=== PATIENT | female | born 1990 | race African-American/Black ===

== ENCOUNTER 2018-09-25 09:53 | Inpatient (IN) | payer BC ==
[2018-09-25] VITALS (7 sets, daily range): BP systolic 89–107; BP diastolic 45–91; Ht 170.2 cm; Wt 104.5 kg
[~2018-09-25] VITALS: Ht 170.2 cm; Wt 104.5 kg
--- NOTE | ~2018-09-25 | EC ---
PATIENT:CORA JOHN DATE OF SERVICE: 09/25/18 SEX: F MEDICAL RECORD: [id number] DATE OF : [birth year] LOCATION:[facility] AGE OF PATIENT: 28 ADMISSION DATE: 09/25/18 REFERRING PHYSICIAN: INTERPRETING PHYSICIAN: TYREE RAI MD ECHOCARDIOGRAM REPORT ECHO CHARGES 4 ECHO COMPLETE Date: 09/26/18 CLINICAL DIAGNOSIS: LV FUNCTION, AB PAIN, HX OF PERICARDIAL EFF WITH WINDOW. ECHOCARDIOGRAPHIC MEASUREMENTS (adult normal given) AC root (d.<3.7cm) 3.4 cm LV Septum d (<1.2 cm> 1.5 cm Valve Excursion 1.2 cm LV Septum (systole) 1.7 cm Left Atria (s.<4.0cm> 3.4 cm LVPW d(<1.2cm) 1.8 cm RV (d.<2.3cm) 3.5 cm LVPW (sytole) 2.0 cm LV diastole(<5.6CM) 3.7 cm MV E-F(>70mm/sec) cm LV systole 2.3 cm LVOT Diameter 1.5 cm MV exc.(>10mm) 1.4 cm Est.ejection fraction (50-75%) % DOPPLER: LVIT cm/sec A cm/sec E 70.0 cm/sec LA 86.0 cm/sec RVSP 178 mmHg LVOT cm/sec AOP1/2T 28 m/s Asc. Ao 117 cm/sec RVOT 188 cm/sec RA 101 cm/sec PA cm/sec AV Gradient Peak 14.13mmHg AV Mean 7.11 mmHg AV Area 1.3 cm MV Gradient Peak 6.36 mmHg MV Mean 3.62 mmHg MV Area cm COMMENTS: Manager Plan: Russell SANTIAGO Customer Service Technician: 1 Dr. Rai TAPE# PACS Pericardial Effusion N DATE OF SERVICE: 09/26/2018 FINDINGS: 1. Left ventricular chamber size is within normal limits. Left ventricular systolic function is normal. Overall ejection fraction is estimated at 65%. 2. Left atrium, right atrium, and right ventricle chamber sizes are within normal limit. 3. Valvular structures have normal structure and motion. 4. Doppler interrogation reveals only mild tricuspid regurgitation. No other valvular insufficiency or stenosis. Pulmonary systolic pressure is normal, ECHOCARDIOGRAM REPORT [id number] CORA JOHN estimated at 28 mmHg. 5. No evidence of pericardial effusion or left ventricular thrombus. TRANSINT:[id number] Voice Confirmation ID: [id number] DOCUMENT ID: [id number] TYREE RAI MD CC: [id number] DICTATION DATE: 09/26/18 1338 CORPORATE MEETING PLANNER: 09/26/18 1433 ADM IN [facility] [address] [place] [address]
--- NOTE | 2018-09-25 13:00 | NUR ---
pt recieved via stretcher and ems. vss. refer to flow sheet. family at bedside. given udpate. pt assitsed to bedside commode large bm noted. denies needs. dr lopez paged given update of pt arrival. will continue to monitor
--- NOTE | 2018-09-25 13:04 | NUR ---
DR. PETERS NOTIFIED OF PT ARRIVAL TO UNIT, NEW ORDERS RECIEVED,
[2018-09-25] MEDS ORDERED: FOLBIC RF TABL1 EACH PO (13:19)
[2018-09-25] MEDS ORDERED: FUROSEMIDE20 MG PO (13:20)
--- NOTE | 2018-09-25 15:20 | NUR ---
DR PETERS AT BEDSIDE. NEW ORDERS RECIEVED.
[2018-09-25 17:16] LABS: ANION GAP 17.4 mmol/L (8-16); BILIRUBIN - TOTAL 0.32 mg/dL (0.2-1.3); CARBON DIOXIDE 17.9 mmol/L (21.0-32.0); CREATININE - SERUM 1.7 mg/dL (0.6-1.3); POTASSIUM - SERUM 4.3 mmol/L (3.5-5.1); PROTEIN - SERUM 5.1 g/dL (6.4-8.2)
[2018-09-25 17:18] LABS: CALCIUM 6.7 mg/dL (8.5-10.1)
[2018-09-25 17:31] LABS: T4 THYROXIN - FREE 0.76 ng/dL (0.76-1.46); THYROID STIMULATING HORMONE 1.22 uIU/mL (0.36-3.74)
[2018-09-25 17:34] LABS: HEMATOCRIT 49.3 % (36.0-48.0); MCH 29.7 pg (26.0-34.0); MCHC 32.5 g/dL (31.0-37.0); MCV 91.5 fL (80.0-100.0); MEAN PLATELET VOLUME 11.6 fL (7.4-10.4); PLATELET COUNT 359 10x3/uL (130-400); RBC 5.39 10x6/uL (4.00-5.40); RDW 14.3 % (11.5-14.5); WBC 31.8 10x3/uL (4.8-10.8)
--- NOTE | 2018-09-25 17:54 | NUR ---
REPORT CALLED TO [facility] [id number]. TRANSFERED VIA WHEELCHAIR
--- NOTE | 2018-09-25 18:24 | NUR ---
PT AAOX4 ICU TRANSFER AT THIS TIME, RESP EVEN AND NONLABORED, CAME WITH BALDEV ER NURSE TAKING IT OUT AT THIS TIME, NO SIGNS OF DISTRESS NOTED, ORIENTED TO ROOM CL IN REACH WILL CONTINUE TO MONITOR
[2018-09-25 18:38] LABS: IRON 46 ug/dl (35-150); UNSAT IRON BIND CAPACITY 160 ug/dl (150-375)
[2018-09-25 18:39] LABS: % SATURATION 22 % (15-55); TOTAL IRON BIND CAPACITY 206 ug/dl (260-445)
[2018-09-25 18:59] LABS: LYMPHOCYTES 9 % (15-50); MONOCYTES 1 % (2-11); NEUTROPHILS 87 % (40-80); PLATELET ESTIMATE NORMAL
[2018-09-25 19:32] LABS: APPEARANCE CLEAR (CLEAR); COLOR YELLOW (YELLOW)
[2018-09-25 19:33] LABS: BILIRUBIN NEGATIVE (NEGATIVE); GLUCOSE NEGATIVE (NEGATIVE); KETONE NEGATIVE (NEGATIVE); NITRITE NEGATIVE (NEGATIVE); PROTEIN NEGATIVE (NEGATIVE); UROBILINOGEN NORMAL (NORMAL)
[2018-09-25 19:34] LABS: BACTERIA MODERATE /hpf (NONE SEEN); EPITHELIAL CELLS 0-5 /hpf (0-5); WHITE CELLS - URINE 0-5 /hpf (0-5)
[2018-09-25 19:35] LABS: YEAST <1+ /hpf (NONE SEEN)
--- NOTE | 2018-09-26 01:48 | NUR ---
RESTING QUIETLY WITH EYES CLOSED. RESP EVEN AND NONLABORED. NO DISTRESS. FAMILY AT BEDSIDE. CL IN REACH.
[2018-09-26 04:00] VITALS: BP 94/41
--- NOTE | 2018-09-26 06:45 | NUR ---
GINO BLAIR AT [facility] IN [place]. SHE REPORTED MS. JOHN HAD GRAM+COCCI IN PAIRS IN HER BLOOD CULTURES.
--- NOTE | 2018-09-26 07:40 | NUR ---
PT RESTING EYES CLOSED EASY RISE AND FALL OF CHEST NO SIGNS OF DISTRESS NOTED, WILL CONTINUE TO MONITOR, CL IN REACH
[2018-09-26 08:37] VITALS: BP 104/40
[2018-09-26 12:26] VITALS: BP 100/42
--- NOTE | 2018-09-26 14:18 | MORECARE ---
CASE MANAGEMENT DISCHARGE SUMMARY PATIENT: CORA JOHN UNIT: [id number] ADM DATE: 09/25/18 AGE: 28 : [birth year] SEX: F ROOM/BED: D.2202 AUTHOR: NIKHIL HIRSCH PHYSICIAN: REFERRING PHYSICIAN: TARI PETERS MD DATE OF SERVICE: 09/26/18 Discharge Plan Patient Name: CORA JOHN Facility: [facility]:[place] : 1990 Planned Disposition: Anticipated Discharge Date: Discharge Date: Expected LOS: Initial Reviewer: [id number] Initial Review Date: 09/26/2018 Generated: 09/26/18 3:18 pm Comments DCP- Discharge Planning Updated by [email or web address]: Destini Suazo on 09/26/18 1:[address] Patient Name: CORA JOHN Admission Status: Elective Accout number: [id number] Admission Date: 09-25-2018 : 1990 Admission Diagnosis: Attending: TARI PETERS Current LOS: 1 Anticipated DC Date: Planned Disposition: Primary Insurance: BLUE CROSS TRUE BLUE PPO Discharge Planning Comments: CM MET WITH PATIENT AND PATIENT'S MOTHER VARUN ABOUT DC PLANNING/NEEDS. PATIENT AND FAMILY DENIES NEEDS AT THIS TIME. CM WILL FOLLOW AND ASSIST NEEDED WITH DC PLANNING/NEEDS. Rfid Developer: Destini Suazo DCPIA - Discharge Planning Initial Assessment Updated by [id number]: Destini Suazo on 09/26/18 2:13 pm * Is the patient Alert and Oriented? Yes * PCP [facility] IN [place] * Pharmacy [facility] * Preadmission Environment Acute Care Facility * Facility Name STATES TRANSFERED FROM [facility] * ADLs Independent * Equipment None * List name and contact numbers for known caregivers / representatives who currently or will assist patient after discharge: VARUN JOHN, MOTHER, * Community resources currently utilized None * Can the patient safely return to the preadmission environment? Yes * Has this patient been hospitalized within the prior 30 days at any hospital? Yes Patient Name: CORA JOHN Page [phone] at 1418 All edits/amendments must be made on the electronic document DICTATION DATE: 09/26/181417 VOCATIONAL REHABILITATION SUPERVISOR: WENDY 09/26/181417 RPT#: [id number] DC DATE: STATUS: ADM IN [facility] [address] [place] [address] END OF REPORT
[2018-09-26 14:30] LABS: HCG SERUM NEGATIVE (NEGATIVE)
[2018-09-26 15:36] LABS: BASOPHILS 0.2 % (0-2); EOSINOPHILS 0.1 % (0-7); IMMATURE GRANULOCYTES 0.5 % (0-5); MCHC 32.3 g/dL (31.0-37.0); MCV 89.8 fL (80.0-100.0); MEAN PLATELET VOLUME 11.2 fL (7.4-10.4); MONOCYTES 9.2 % (2-11); RDW 14.2 % (11.5-14.5)
[2018-09-26 15:49] LABS: HEMATOCRIT 32.5 % (36.0-48.0); HEMOGLOBIN 10.5 g/dL (12-16); PLATELET COUNT 263 10x3/uL (130-400); RBC 3.62 10x6/uL (4.00-5.40)
--- NOTE | 2018-09-26 16:27 | NUR ---
RESTING QUIETLY IN BED. DENIES NEEDS.
[2018-09-26 16:38] LABS: ALBUMIN 2.2 g/dL (3.4-5.0); ALKALINE PHOSPHATASE 22 U/L (46-116); ALT (SGPT) 20 U/L (10-68); BILIRUBIN - TOTAL 0.24 mg/dL (0.2-1.3); CALC OSMOLALITY 281 mosm/kg (275-300); CALCIUM 7.3 mg/dL (8.5-10.1); CARBON DIOXIDE 24.9 mmol/L (21.0-32.0); CHLORIDE - SERUM 109 mmol/L (98-107); CREATININE - SERUM 0.9 mg/dL (0.6-1.3); GLUCOSE 100 mg/dL (74-106); POTASSIUM - SERUM 3.6 mmol/L (3.5-5.1); PROTEIN - SERUM 4.8 g/dL (6.4-8.2); SODIUM 141 mmol/L (136-145); UREA NITROGEN 15 mg/dL (7-18); eGFR NON AFRICAN AMERICAN 78 mL/min (90-120)
[2018-09-26 16:40] LABS: ERYTHROCYTE SEDIMENTATION RATE 7 mm/hr (0-20)
[2018-09-26 20:00] VITALS: BP 114/59
--- NOTE | 2018-09-27 03:13 | NUR ---
A/OX4. BREATHING EVEN AND UNLABORED. DENIES NEEDS AT THIS TIME. WILL CONTINUE POC.
[2018-09-27 04:00] VITALS: BP 103/55
[2018-09-27 06:15] LABS: FOLATE (FOLIC ACID) - SERUM 4.7 ng/mL (>3.0)
[2018-09-27 08:00] VITALS: BP 122/76
[2018-09-27 12:00] VITALS: BP 116/73
--- NOTE | 2018-09-27 13:22 | NUR ---
A/O X 4. RESTING QUIETLY IN BED. EYES OPEN, LIGHT OFF. RESPIRATIONS EVEN AND UNLABORED. NO SIGNS OF DISTRESS NOTED. NO COMPLAINTS VOICED. FAMILY AT BEDSIDE. CALL LIGHT AND BEDSIDE TABLE IN REACH, ROOM FREE OF CLUTTER. BED IN LOWEST POSITION. PVIC REMOVED FROM R AC, DUE TO INFILTRATION. PT REQUESTED NOT TO HAVE A NEW IV PLACED, ANTICIPATING D/C TODAY. INTENSIVE CARE UNIT REGISTERED NURSE INFORMED, STATED SHE WILL CHANGE IV ABX TO PO. NO NEW IV NEEDED AT THIS TIME. WILL CONTINUE TO MONITOR.
[2018-09-27] MEDS ORDERED: LEVAQUIN750 MG PO (14:52)
--- NOTE | 2018-09-30 12:54 | MORECARE ---
CASE MANAGEMENT DISCHARGE SUMMARY PATIENT: CORA JOHN UNIT: [id number] ADM DATE: 09/25/18 AGE: 28 : [birth year] SEX: F ROOM/BED: D.2202 AUTHOR: NIKHIL HIRSCH PHYSICIAN: REFERRING PHYSICIAN: TARI PETERS MD DATE OF SERVICE: 09/30/18 Discharge Plan Patient Name: CORA JOHN Facility: [facility]:[place] : 1990 Planned Disposition: Anticipated Discharge Date: Discharge Date: 09/27/2018 Expected LOS: Initial Reviewer: [email or web address] Initial Review Date: 09/26/2018 Generated: 09/30/18 1:54 pm Comments DCP- Discharge Planning Updated by [email or web address]: Destini Suazo on 09/26/18 1:[address] Patient Name: CORA JOHN Admission Status: Elective Accout number: [id number] Admission Date: 09-25-2018 : 1990 Admission Diagnosis: Attending: TARI PETERS Current LOS: 1 Anticipated DC Date: Planned Disposition: Primary Insurance: BLUE CROSS TRUE BLUE PPO Discharge Planning Comments: CM MET WITH PATIENT AND PATIENT'S MOTHER VARUN ABOUT DC PLANNING/NEEDS. PATIENT AND FAMILY DENIES NEEDS AT THIS TIME. CM WILL FOLLOW AND ASSIST NEEDED WITH DC PLANNING/NEEDS. Dynamic Balancer: Destini Suazo DCPIA - Discharge Planning Initial Assessment Updated by [id number]: Destini Suazo on 09/26/18 2:13 pm * Is the patient Alert and Oriented? Yes * PCP [facility] IN [place] * Pharmacy [facility] * Preadmission Environment Acute Care Facility * Facility Name STATES TRANSFERED FROM [facility] * ADLs Independent * Equipment None * List name and contact numbers for known caregivers / representatives who currently or will assist patient after discharge: VARUN JOHN, MOTHER, * Community resources currently utilized None * Can the patient safely return to the preadmission environment? Yes * Has this patient been hospitalized within the prior 30 days at any hospital? Yes Last DP export: 09/26/18 1:18 pm Patient Name: CORA JOHN Page [phone] at 1254 All edits/amendments must be made on the electronic document DICTATION DATE: 09/30/18 1254 SUPERVISOR MARBLE: WENDY 09/30/18 1254 RPT#: [id number] DC DATE:09/27/18 STATUS: DIS IN [facility] [address] [place] [address] END OF REPORT
== END 2018-09-27 15:58 | disposition home or self-care (01) | DRG 872 ==
LOC: D.ICU 09:53 → D.MS 10:11 → D.ICU 12:49 → D.MS 17:54
PROVIDERS: ADMIT Internal Medicine Nephrology
DX: A41.9 Sepsis, unspecified organism (principal); N39.0 Urinary tract infection, site not specified; N17.9 Acute kidney failure, unspecified; E86.9 Volume depletion, unspecified; E66.01 Morbid (severe) obesity due to excess calories; Z68.36 Body mass index [BMI] 36.0-36.9, adult; N14.1 Nephropathy induced by other drugs, medicaments and biological substances; T50.8X5A Adverse effect of diagnostic agents, initial encounter; Y92.239 Unspecified place in hospital as the place of occurrence of the external cause; K59.09 Other constipation